=== PATIENT | female | born 1965 | race American Indian/Alaskan Native ===

== ENCOUNTER 2016-04-30 10:27 | Outpatient (CLI) | payer BC, OTHER ==
--- NOTE | 2016-04-30 13:37 | XRay Report ---
Chest 2 views: History: Cough. Findings: Normal cardiomediastinal silhouette. Trachea is midline. No consolidation, pneumothorax or pleural effusion. Impression: No acute cardiopulmonary findings.
== END 2016-04-30 10:28 | disposition home or self-care (01) ==
LOC: XRAY 10:27
PROVIDERS: ATTEND Emergency Medicine
DX: R05 Cough (principal); R06.00 Dyspnea, unspecified
CPT/HCPCS: 71020